=== PATIENT | male | born 1955 | race Caucasian/White ===

== ENCOUNTER 2017-05-05 18:23 | Inpatient (IN) | payer OTHER ==
[~2017-05-05] VITALS: Ht 170.2 cm; Wt 73.0 kg
[~2017-05-05 18:23] MED LIST: CIPR500T4 PO; DOXA2TAB1 PO; FERR325E14 PO
[2017-05-05 19:17] VITALS: BP 143/53
--- NOTE | 2017-05-05 19:39 | NUR ---
Patient to bed 06.
--- NOTE | 2017-05-05 19:40 | NUR ---
APATIENT PRESENTS TO ED WITH SOB/DIFF BREATHING X 2 DAYS. PT IS NOT ON O2 AT HOME BUT CURRENTLY O2SAT IS 95% ON RA. LUNG SOUNDS AT CLEAR BILAT. PT HAS DIALYSIS ON LEFT ARM PT DENIES N/V/D; SKIN IS PINK/WARM/DRY; AAOX4 WITH EVEN AND STEADY GAIT; LUNGS CLEAR BL; HR EVEN AND REGULAR; PT DENIES ANY FEVER OR COUGH AT THIS TIME; PATIENT STATES PAIN OF 0/10 AT THIS TIME; VSS; PATIENT POSITIONED FOR COMFORT; HOB ELEVATED; BEDRAILS UP X2; BED DOWN. ER MD MADE AWARE OF PT STATUS.
[2017-05-05] MEDS ORDERED: ALBUTEROL 0.083% 2.5 MG/3 ML NEBU INH ONE ×2 (21:25→22:45)
--- NOTE | 2017-05-05 21:43 | NUR ---
Respiratory Therapist at bedside for respiratory intervention.
[2017-05-05 22:07] LABS: HEMATOCRIT 38.3 % (36-52); HEMOGLOBIN 12.6 g/dL (12.0-18.0); MEAN CORPUSCULAR HEMOGLOBIN 29 pg (27-31); MEAN CORPUSCULAR HGB CONC 33 g/dL (33-37); MEAN CORPUSCULAR VOLUME 87 fL (80-94); PLATELET COUNT (AUTO) 411 K/uL (140-450); RED CELL DISTRIBUTION WIDTH 13.2 % (11.6-13.7); WHITE BLOOD COUNT (AUTO) 26.6 K/uL (4.8-10.8)
[2017-05-05 22:21] LABS: LYMPHOCYTES % (MANUAL) 2 % (20-46); MONOCYTES % (MANUAL) 4 % (5-12)
[2017-05-05 22:22] LABS: APPEARANCE,URINE CLOUDY (CLEAR); BILIRUBIN,URINE NEGATIVE (NEGATIVE); BLOOD, URINE 2+ (NEGATIVE); COLOR,URINE YELLOW (YELLOW); LEUKOCYTE ESTERASE ,URINE 3+ (NEGATIVE); NITRITE, URINE NEGATIVE (NEGATIVE); UGLUCOSE NEGATIVE (NEGATIVE)
[2017-05-05 22:29] LABS: PROTHROMBIN TIME 10.9 secs (10.8-13.4)
[2017-05-05 22:30] LABS: ALBUMIN 2.9 g/dL (3.4-5.0); ANION GAP 37.3 (8-16); TOTAL BILIRUBIN 0.5 mg/dL (0.0-1.0)
[2017-05-05 22:37] LABS: CARBON DIOXIDE 8.3 mmol/L (21-32); POTASSIUM 7.6 mmol/L (3.5-5.1)
[2017-05-05 22:38] LABS: CREATININE 17.8 mg/dL (0.7-1.3)
[2017-05-05] MEDS ORDERED: CALCIUM CHLORIDE 10% 100 MG/ML SYR IVP ONE (22:45)
[2017-05-05] MEDS ORDERED: SODIUM POLYSTYRENE 15 GM/60 ML UDBTL PO ONE (22:45)
[2017-05-05] MEDS ORDERED: DEXTROSE 50% 50 ML SYR IVP ONE (22:45)
[2017-05-05] MEDS ORDERED: SODIUM BICARBONATE 8.4% 50 MEQ/50 ML VIAL INJ ONE (22:45)
[2017-05-05] MEDS ORDERED: INSULIN HUMAN REGULAR 100 UNITS/ML 10 ML VIAL IVP STA (22:45)
[2017-05-05 22:50] LABS: RBC,URINE 11-20 (MOD) /HPF (0-5); WBC,URINE TOO MANY TO COUNT /HPF (0-5)
[2017-05-05] MEDS ORDERED: HYDROcodone/APAP 7.5/325 MG 1 TAB PO PRN (23:50)
[2017-05-05] MEDS ORDERED: ONDANSETRON 4 MG/2 ML VIAL IVP PRN (23:50)
--- NOTE | 2017-05-06 00:02 | NUR ---
Patient will be admitted to care of DR THOMPSON. Admited to TELE. Will go to room 110B. Belongings list completed. Report to PANCHO GAMEZ.
[2017-05-06 00:10] VITALS: BP 121/63
--- NOTE | 2017-05-06 00:10 | NUR ---
PT ARRIVED ON UNIT VIA GURNEY FROM THE ER. PT IN STABLE CONDITION NO S/S OF DISTRESS NOTED. PT AA0X4, SKIN IS WARM AND DRY, RASH NOTED TO SACRAL AREA AND OPEN WOUND TO LL PUBIC REGION 1CMX0.5CM BRAYAN. IV TO R HAND 20G PATENT AND INTACT. RESPIRATIONS ARE EVEN AND UNLABORED. PT IS ON RA. BOWEL SOUNDS PRESENT. PT AMBULATES BUT IS UNSTEADY. INITIAL ASSESSMENT COMPLETED. PLAN OF CARE DISCUSSED WITH PT AT THE BEDSIDE, ALL SAFETY PRECAUTIONS MET, CALL LIGHT WITHIN REACH WILL CONTINUE TO MONITOR
[2017-05-06 00:14] LABS: BARBITURATE, URINE NEG. ng/ml (NEG <=200); BENZODIAZEPINE, URINE NEG. ng/mL (NEG <=200); OPIATE, URINE NEG. ng/mL (NEG <=2000)
--- NOTE | 2017-05-06 00:15 | NUR ---
WOUND CLEANSED WITH NS, CULTURE TAKEN AND WOUND COVERED WITH GAUZE
[2017-05-06 00:21] LABS: CHOL/HDL RATIO 3.3 (1-4.5); FREE T4 (FREE THYROXINE) 0.5 ng/dL (0.76-1.46); MAGNESIUM 2.6 mg/dL (1.8-2.4); THYROID STIMULATING HORMONE 0.98 uIU/mL (0.34-3.74)
[2017-05-06] MEDS ORDERED: ALBUTEROL SULFATE/IPRATROPIU 3 ML SOL IH PRN (00:40)
[2017-05-06 01:27] LABS: CANNABINOID, URINE NEG. ng/mL (NEG <=50); COCAINE, URINE NEG. ng/mL (NEG <=300); PHENCYCLIDINE SCREEN,URINE NEG. ng/mL (NEG <=25)
[2017-05-06] MEDS ORDERED: SODIUM BICARBONATE 8.4% 50 MEQ/50 ML VIAL INJ SCH (01:40)
[2017-05-06 01:46] LABS: PHOSPHORUS 17.1 mg/dL (2.5-4.9)
--- NOTE | 2017-05-06 01:46 | NUR ---
RECEIVED CRITICAL LAB VALUE FOR PHOSPHORUS 17.[address] NINA AWARE
[2017-05-06] MEDS: NACL 0.9% 1,000 ML IV SCH ×4 (01:49→20:37)
[2017-05-06] MEDS ORDERED: SODIUM BICARBONATE 8.4% 50 MEQ/50 ML VIAL INJ ONE (01:50)
[2017-05-06 02:02] LABS: ANION GAP 38.9 (8-16)
[2017-05-06 02:12] LABS: POTASSIUM 6.7 mmol/L (3.5-5.1)
[2017-05-06 02:13] LABS: CARBON DIOXIDE 5.8 mmol/L (21-32)
--- NOTE | 2017-05-06 02:30 | NUR ---
DIALYSIS NURSE CAME TO SEE PT, PORT IS NOT ACCESSIBLE ANYMORE, NEW PLACEMENT IS NEEDED. DR. NINA AWARE
[2017-05-06] MEDS ORDERED: SODIUM BICARBONATE 8.4% PFS 50 MEQ/50 ML SYR IVP ONE ×2 (02:48→03:16)
[2017-05-06] MEDS ORDERED: MORPHINE SULFATE 2 MG/ML SYR IVP PRN ×2 (02:50→07:12)
--- NOTE | 2017-05-06 02:55 | NUR ---
NEW IV PLACED BY CHARGE NURSE OMID, OLD IV INFILTRATED, SWELLING NOTED. NEW IV PLACED ON THE R AC 2O G, PATENT AND INTACT
[2017-05-06 04:00] VITALS: BP 119/64
--- NOTE | 2017-05-06 04:00 | NUR ---
ANNA CATHETER PLACED ON LEFT SIDE OF NECK BY DR. NINA, PT TOLERATED WELL. WILL CONTINUE TO MONITOR
[2017-05-06] MEDS: PIPER/TAZO 2.25GM/D5W PREMIX 50 ML IV SCH ×3 (05:12→20:32)
[2017-05-06] MEDS ORDERED: PIPERACILLIN/TAZOBACTAM 2.25 GM VIAL IV ONE (05:20)
--- NOTE | 2017-05-06 05:27 | NUR ---
PATIENT WAS INSTRUCTED ON ICENTIVE SPIROMETRY. PATIENT DID 1200ML X 5 TIMES. PATIENT IS ON ROOM AIR AND NO RESP DISTRESS SPO2 98 HEART RATE 88
[2017-05-06 06:10] LABS: HEMATOCRIT 33.5 % (36-52); HEMOGLOBIN 11.5 g/dL (12.0-18.0); MEAN CORPUSCULAR HEMOGLOBIN 30 pg (27-31); MEAN CORPUSCULAR HGB CONC 34 g/dL (33-37); MEAN CORPUSCULAR VOLUME 86 fL (80-94); PLATELET COUNT (AUTO) 327 K/uL (140-450); WHITE BLOOD COUNT (AUTO) 19.3 K/uL (4.8-10.8)
--- NOTE | 2017-05-06 06:23 | NUR ---
PT KEPT CLEAN AND DRY, PEACOCK CARE PROVIDED.
[2017-05-06 06:47] LABS: MAGNESIUM 2.2 mg/dL (1.8-2.4)
--- NOTE | 2017-05-06 07:00 | NUR ---
CHECKED WITH DR NINA REGARDING RESULT OF CXR, STATED THEY WILL REPLACED IT.
[2017-05-06] MEDS: ALBUTEROL SULFATE/IPRATROPIU 3 ML SOL IH SCH ×3 (07:02→18:34)
[2017-05-06 07:05] LABS: LYMPHOCYTES % (MANUAL) 3 % (20-46); MONOCYTES % (MANUAL) 3 % (5-12)
[2017-05-06 07:26] LABS: ANION GAP 39.5 (8-16); POTASSIUM 5.6 mmol/L (3.5-5.1)
--- NOTE | 2017-05-06 07:30 | NUR ---
GAVE REPORT TO DAY NURSE AT THE BEDSIDE FOR CONTINUITY OF CARE, PT REMAINS STABLE
--- NOTE | 2017-05-06 07:30 | NUR ---
RECEIVED PT AWAKE, EATING BREAKFAST. NO SOB NOTED. NO C/O PAIN AT THIS TIME. IV TO RT HAND PATENT AND INTACT. CHEST CLEAR. ABDOMEN SOFT, BOWEL SOUNDS PRESENT. WITH PEACOCK DRAINING SMALL AMOUNT OF DARK ZUNILDA URINE. NO EDEMA NOTED. DRESSING TO LEFT LOWER ABDOMEN DRY AND INTACT. INSTRUCTED PT TO CALL FOR ASSISTANCE, CALL LIGHT WITHIN REACH. PT VERBALIZED UNDERSTANDING.
[2017-05-06 07:46] LABS: PHOSPHORUS 11.7 mg/dL (2.5-4.9)
[2017-05-06 08:00] VITALS: BP 109/62
[2017-05-06] MEDS ORDERED: CALCIUM ACETATE 667 MG TAB PO SCH (08:00)
[2017-05-06] MEDS ORDERED: HYDROmorphone 1 MG/ML AMP IVP SCH (08:00)
[2017-05-06 08:49] LABS: CARBON DIOXIDE 7.1 mmol/L (21-32)
[2017-05-06 08:50] LABS: CREATININE 17.8 mg/dL (0.7-1.3)
[2017-05-06] MEDS: LORazepam 2 MG/ML VIAL IVP SCH (08:54)
--- NOTE | 2017-05-06 08:55 | NUR ---
1 MG ATIVAN IVP GIVEN PER DR. WEBB; 1 MG WASTED FROM STOCK OF 2 MG PER VIAL.
[2017-05-06] MEDS: LACTOBACILLUS RHAMNOSUS GG 1 EACH CAP PO SCH (09:00)
[2017-05-06] MEDS: DOCUSATE SODIUM 100 MG GELCAP PO SCH ×2 (09:00→20:32)
[2017-05-06] MEDS ORDERED: CALCIUM GLUCONATE 10% 1,000 MG in NACL 0.9% 100 ML IV SCH (09:00)
--- NOTE | 2017-05-06 09:00 | NUR ---
RIGHT ANNA CATHETER PLACEMENT STARTED AT THE BEDSIDE.
--- NOTE | 2017-05-06 09:30 | NUR ---
DR. REDDY UNABLE TO PLACE RT CHEST ANNA CATH.
--- NOTE | 2017-05-06 09:55 | NUR ---
PATIENT HAS BEEN SCREENED AND CATEGORIZED MODERATE NUTRITION RISK. PATIENT WILL BE SEEN WITHIN 3-5 DAYS OF ADMISSION. 05/08/17-05/10/[address] Addendum: 05/07/17 at [address] D/T FNS CONSULT RECEIVED ON 05/07, PT HAS BEEN RESCREENED HIGH NUTRITION RISK. PT WILL BE SEEN WITHIN 1-2 DAYS OF WHEN CONSULT WAS RECEIVED. 05/08/17 -05/09/[address]
[2017-05-06] MEDS ORDERED: SODIUM BICARBONATE 8.4% PFS 50 MEQ/50 ML SYR IVP STA (10:14)
--- NOTE | 2017-05-06 10:50 | NUR ---
RT FEMORAL ANNA CATHETER PLACEMENT ON GOING AT THE BEDSIDE DR. DR. TRAN.
[2017-05-06] MEDS: ALBUMIN HUMAN 25% 100 ML IV SCH ×2 (11:30→13:30)
[2017-05-06] MEDS ORDERED: OSMITROL 25% 12.5 GM/50 ML VIAL IV SCH ×2 (11:50→12:30)
--- NOTE | 2017-05-06 11:50 | NUR ---
HEMODIALYSIS STARTED AT THE BEDSIDE. PT RESTING. NO SOB NOTED.
[2017-05-06 12:00] VITALS: BP 120/62
--- NOTE | 2017-05-06 13:22 | NUR ---
PT CANNOT BE ACCESSED DUE TO DIALYSIS HHN NOT GIVEN SPO2 98 ON RA HEART RATE IS 111 RR 18 NO DISTRESS NOTED
--- NOTE | 2017-05-06 14:00 | NUR ---
MANNITOL 25% 250 ML GIVEN BY DIALYSIS NURSE DURING HEMODIALYSIS.
[2017-05-06] MEDS ORDERED: DEXTROSE 50% 50 ML SYR IVP PRN (14:25)
--- NOTE | 2017-05-06 15:00 | NUR ---
HEMODIALYSIS COMPLETED. PT STABLE, RESTING. NO COMPLAINTS MADE. NO OUTPUT PER DIALYSIS NURSE, CLEANSING ONLY.
[2017-05-06] MEDS ORDERED: ALBUMIN HUMAN 25% 50 ML IV SCH (15:30)
[2017-05-06 16:00] VITALS: BP 129/70
[2017-05-06] MEDS: BLOOD GLUCOSE MONITORING 1 DEV DEV FS SCH ×2 (16:30→20:30)
[2017-05-06] MEDS: CALCIUM ACETATE 667 MG TAB PO SCH (17:00)
--- NOTE | 2017-05-06 17:00 | NUR ---
ULTRASOUND OF ABDOMEN ON GOING AT THE BEDSIDE.
[2017-05-06] MEDS: INSULIN LISPRO SLIDING SCALE 100 UNITS/ML VIAL SUBQ PRN ×2 (17:34→22:21)
[2017-05-06 18:48] LABS: ANION GAP 26.9 (8-16); CARBON DIOXIDE 16.1 mmol/L (21-32)
[2017-05-06 18:51] LABS: CREATININE 13.6 mg/dL (0.7-1.3)
--- NOTE | 2017-05-06 19:00 | NUR ---
PT AWAKE, NO SOB NOTED. NO COMPLAINTS MADE. WITH FAMILY AT THE BEDSIDE VISITING. WILL ENDORSE TO NEXT SHIFT NURSE FOR CONTINUITY OF CARE.
--- NOTE | 2017-05-06 19:20 | NUR ---
PATIENT REPORT RECEIVED FROM MORNING NURSE. PATIENT'S FAMILY IS AT BEDSIDE. PATIENT IS AWAKE AND ALERT. NO SIGNS AND SYMPTOMS OF DISTRESS NOTED. NO COMPLAINTS OF PAIN AT THIS TIME. PEACOCK CATHETER IN PLACE AND DRAINING DARK ZUNILDA URINE. IV SITE NOTED ON RIGHT HAND. IVF INFUSING WELL. RIGHT FEMORAL ANNA CATH NOTED. BED IN LOWEST POSITION, SIDE RAILS UP AND CALL LIGHT WITHIN REACH. WILL CONTINUE TO MONITOR.
[2017-05-06 20:00] VITALS: BP 113/63
[2017-05-06] MEDS: ACETAMINOPHEN 325 MG TAB PO PRN (20:32)
--- NOTE | 2017-05-06 22:59 | NUR ---
PATIENT CONFUSED. ASKING WHY HE WAS HERE. EXPLAINED TO HIM HIS DIAGNOSIS AND THE TREATMENT THAT IS BEING DONE, WELL THE NEED FOR DIALYSIS. PATIENT SAID THAT HE WANTED TO TALK TO ONE OF HIS CHILDREN. I CALLED PATIENT'S DAUGHTER, SIMON. DAUGHTER SPOKE WITH PATIENT OVER THE PHONE. PATIENT VERBALIZED UNDERSTANDING. WILL CONTINUE TO MONITOR.
--- NOTE | 2017-05-06 23:46 | NUR ---
CHECKED ON PATIENT. PATIENT IS ASLEEP. NO SIGNS AND SYMPTOMS OF DISTRESS NOTED. BREATHING EVEN AND UNLABORED. BED IN LOWEST POSITION, SIDE RAILS UP AND CALL LIGHT WITHIN REACH. WILL CONTINUE TO MONITOR.
[2017-05-07] VITALS: BP 120/62
[2017-05-07 04:00] VITALS: BP 118/73
[2017-05-07] MEDS: PIPER/TAZO 2.25GM/D5W PREMIX 50 ML IV SCH ×3 (04:00→21:42)
--- NOTE | 2017-05-07 06:00 | NUR ---
PATIENT STARTED DIALYSIS
[2017-05-07] MEDS: BLOOD GLUCOSE MONITORING 1 DEV DEV FS SCH ×4 (06:31→21:50)
[2017-05-07 06:33] LABS: HEMATOCRIT 28.1 % (36-52); HEMOGLOBIN 9.5 g/dL (12.0-18.0); MEAN CORPUSCULAR HEMOGLOBIN 29 pg (27-31); MEAN CORPUSCULAR HGB CONC 34 g/dL (33-37); MEAN CORPUSCULAR VOLUME 85 fL (80-94); PLATELET COUNT (AUTO) 285 K/uL (140-450); RED BLOOD CELL COUNT(AUTO) 3.33 MIL/uL (4.20-6.10); RED CELL DISTRIBUTION WIDTH 13.1 % (11.6-13.7); WHITE BLOOD COUNT (AUTO) 17.2 K/uL (4.8-10.8)
[2017-05-07] MEDS: ALBUTEROL SULFATE/IPRATROPIU 3 ML SOL IH SCH ×3 (06:59→19:57)
[2017-05-07 07:00] LABS: ALBUMIN 1.8 g/dL (3.4-5.0); ANION GAP 25.4 (8-16); CARBON DIOXIDE 16.8 mmol/L (21-32); POTASSIUM 4.2 mmol/L (3.5-5.1); TOTAL BILIRUBIN 0.6 mg/dL (0.0-1.0)
[2017-05-07 07:15] LABS: CREATININE 13.9 mg/dL (0.7-1.3)
[2017-05-07 07:16] LABS: PHOSPHORUS 9.5 mg/dL (2.5-4.9)
--- NOTE | 2017-05-07 07:25 | NUR ---
PATIENT REPORT GIVEN TO MORNING NURSE. PATIENT IS IN STABLE CONDITION
[2017-05-07 07:32] LABS: LYMPHOCYTES % (MANUAL) 2 % (20-46); MONOCYTES % (MANUAL) 2 % (5-12)
[2017-05-07 07:49] VITALS: BP 120/73
[2017-05-07] MEDS ORDERED: MAG SULF 2000 MG/WATER PREMIX 50 ML IV SCH (08:00)
--- NOTE | 2017-05-07 08:05 | NUR ---
PT IN BED AWAKE ALERT AND CALM. NO NO REPORTED PAIN OR SOB. PT IS VERBALLY RESPONSIVE TO VERBAL COMMAND VIA POLISH ONLY
[2017-05-07 09:36] LABS: ALBUMIN 1.9 g/dL (3.4-5.0); ANION GAP 25.6 (8-16); CARBON DIOXIDE 16.6 mmol/L (21-32); POTASSIUM 4.2 mmol/L (3.5-5.1); TOTAL BILIRUBIN 0.7 mg/dL (0.0-1.0)
[2017-05-07 09:43] LABS: CREATININE 14.1 mg/dL (0.7-1.3)
[2017-05-07] MEDS: LACTOBACILLUS RHAMNOSUS GG 1 EACH CAP PO SCH (09:48)
[2017-05-07] MEDS: DOCUSATE SODIUM 100 MG GELCAP PO SCH ×2 (09:49→21:42)
[2017-05-07] MEDS: LORazepam 2 MG/ML VIAL IVP SCH (09:50)
[2017-05-07] MEDS: CALCIUM ACETATE 667 MG TAB PO SCH ×2 (09:51→17:06)
[2017-05-07] MEDS ORDERED: BUPIVACAINE-MPF 0.25% 30 ML VIAL INJ ONE (10:29)
[2017-05-07] MEDS ORDERED: LIDOCAINE 1% 0 ML ONE (10:29)
--- NOTE | 2017-05-07 10:30 | NUR ---
DIALYSIS COMPLETED AT THE BED SITE. PT IS AWAKE ALERT AND CALM. NO ACUTE DISTRESS NOTED. PT IS NPO FOR PLACEMENT OF YUNNEL CATHETER FOR DIALYSIS. V/S STABLE.
[2017-05-07 12:00] VITALS: BP 130/81
[2017-05-07] MEDS: INSULIN LISPRO SLIDING SCALE 100 UNITS/ML VIAL SUBQ PRN ×3 (12:40→21:47)
--- NOTE | 2017-05-07 14:10 | NUR ---
PT AWAKE IN BED ALERT AND CALM. NO ACUTE DISTRESS OR PAIN. AT PRESENT. TUNNEL CATH NOT PLACED DUE TO AVAILABILITY OF SURGERY ROOM. RESIDENT DR WEBB NOTIFIED ABOUT POSITIVE BLOOD CULTURE.
--- NOTE | 2017-05-07 15:04 | NUR ---
05/07/17 RD INITIAL ASSESSMENT COMPLETED PLEASE REFER TO NUTRITION ASSESSMENT UNDER CARE ACTIVITY FOR ESTIMATED NUTRITIONAL NEEDS. 1. CONTINUE NPO MEDICALLY NECESSARY PER MD 2. WHEN MEDICALLY APPROPRIATE CONSIDER ADVANCE DIET BACK TO RENAL 3. RD PROVIDED PT WITH RENAL DIET EDUCATIONAL HANDOUTS. 4. RD TO FOLLOW-UP 3-5 DAYS, MODERATE RISK ANDREW BAE RD
[2017-05-07 16:00] VITALS: BP 129/55
[2017-05-07] MEDS ORDERED: LIDOCAINE/EPI 2% 1:100000 20 ML VIAL INJ SCH (16:50)
[2017-05-07] MEDS: NACL 0.9% 1,000 ML IV SCH (17:00)
[2017-05-07] MEDS: ACETAMINOPHEN 325 MG TAB PO PRN (17:04)
--- NOTE | 2017-05-07 19:00 | NUR ---
PT IN BED SITTING AND TALKING WITH HIS FAMILY AT THE BED SITE WITH PT. NO PAIN OR DISTRESS NOTED. TYLENOL 650 MG PO GIVEN AT 1720 FOR TEMP OF 100.3. 2 UNITS OF INSULIN COVERAGE GIVEN FOR BLOOD SUGAR OF 161. PT IS NST OB THE MONITOR.
--- NOTE | 2017-05-07 19:10 | NUR ---
RECEIVED BEDSIDE REPORT FROM DAY SHIFT NURSE, PT STABLE NO DISTRESS NOTED, NO SOB, AAOX4, IV TO THE R FA 20G RUNNING NS @ 50ML/HR INFUSING WELL, DRESSING CLEAN DRY AND INTACT, PEACOCK CATH DRAINING URINE, CLOUDY LIGHT YELLOW, PT RESTING, FAMILY BY BEDSIDE, CALL LIGHT WITHIN REACH. INITIAL ASSESSMENT DONE, ALL SAFETY PRECAUTION MET. WILL CONTINUE TO MONITOR.
[2017-05-07 20:00] VITALS: BP 139/84
[2017-05-07 20:14] LABS: ANION GAP 17.6 (8-16); CARBON DIOXIDE 25.1 mmol/L (21-32); POTASSIUM 3.7 mmol/L (3.5-5.1)
[2017-05-07 20:18] LABS: CREATININE 9.9 mg/dL (0.7-1.3)
--- NOTE | 2017-05-07 21:47 | NUR ---
DUE MEDICATION GIVEN, PT SLEEPING, EASY TO AROUSE, NO DISTRESS NOTED, CALL LIGHT WITHIN REACH, WILL CONTINUE TO MONITOR.
--- NOTE | 2017-05-07 23:09 | NUR ---
ENDORSE PT TO PATRICIA RN, PT STABLE, NO DISTRESS NOTED, SLEEPING, EASY TO AROUSE, CALL LIGHT WITHIN REACH.
--- NOTE | 2017-05-07 23:10 | NUR ---
RECEIVED REPORT FROM PANCHO DON. PATIENT WAS SLEEPING, BUT EASY TO AROUSE, RESPIRATION EVEN AND UNLABORED, IV PATENT AND INTACT. INTRODUCED MYSELF TO THE PATIENT AND INFORMED HIM THAT HE WOULD BE PICKED UP FOR THE ABDOMINAL CT. PATIENT VERBALIZED UNDERSTANDING. CALL LIGHT WITHIN REACH, SAFETY MEASURE ENSURED, WILL CONTINUE TO MONITOR.
--- NOTE | 2017-05-07 23:18 | NUR ---
PATIENT IS IN STABLE CONDITION AND OFF THE FLOOR FOR THE ABDOMINAL CT.
--- NOTE | 2017-05-07 23:40 | NUR ---
ASSISTED PATIENT BACK TO BED, NO S/S OF DISTRESS NOTED, RESPIRATION EVEN AND UNLABORED, VITAL SIGNS ARE STABLE. CALL LIGHT WITHIN REACH, SAFETY MEASURE ENSURED, WILL CONTINUE TO MONITOR.
[2017-05-08 00:03] VITALS: BP 140/89
--- NOTE | 2017-05-08 02:07 | NUR ---
NO CHANGE IN CONDITION, PATIENT IS SLEEPING, NO S/S OF DISTRESS NOTED, RESPIRATION EVEN AND UNLABORED, CALL LIGHT WITHIN REACH, SAFETY MEASURE ENSURED, WILL CONTINUE TO MONITOR.
[2017-05-08 03:55] VITALS: BP 138/82
[2017-05-08] MEDS: PIPER/TAZO 2.25GM/D5W PREMIX 50 ML IV SCH ×2 (04:01→13:58)
[2017-05-08] MEDS: NACL 0.9% 1,000 ML IV SCH ×2 (04:01→20:06)
--- NOTE | 2017-05-08 04:03 | NUR ---
ZOSYN STARTED, PATIENT TOLERATED WELL, NO S/S OF DISTRESS NOTED, RESPIRATION EVEN AND UNLABORED, CALL LIGHT WITHIN REACH, SAFETY MEASURE ENSURED, WILL CONTINUE TO MONITOR.
--- NOTE | 2017-05-08 06:28 | NUR ---
PATIENT WAS SLEEPING, BUT EASY TO AROUSE. NO S/S OF DISTRESS NOTED, RESPIRATION EVEN AND UNLABORED, CALL LIGHT WITHIN REACH, SAFETY MEASURE ENSURED, WILL CONTINUE TO MONITOR.
[2017-05-08 06:47] LABS: HEMATOCRIT 27.4 % (36-52); HEMOGLOBIN 9.2 g/dL (12.0-18.0); MEAN CORPUSCULAR HEMOGLOBIN 29 pg (27-31); MEAN CORPUSCULAR HGB CONC 34 g/dL (33-37); MEAN CORPUSCULAR VOLUME 86 fL (80-94); PLATELET COUNT (AUTO) 300 K/uL (140-450); RED BLOOD CELL COUNT(AUTO) 3.19 MIL/uL (4.20-6.10); RED CELL DISTRIBUTION WIDTH 12.6 % (11.6-13.7); WHITE BLOOD COUNT (AUTO) 17.8 K/uL (4.8-10.8)
[2017-05-08] MEDS: BLOOD GLUCOSE MONITORING 1 DEV DEV FS SCH ×4 (06:53→20:57)
[2017-05-08 07:06] LABS: ANION GAP 24.4 (8-16); CARBON DIOXIDE 19.9 mmol/L (21-32); POTASSIUM 4.3 mmol/L (3.5-5.1)
[2017-05-08 07:07] LABS: AMYLASE 91 U/L (25-115); LIPASE 327 U/L (73-393)
[2017-05-08] MEDS: ALBUTEROL SULFATE/IPRATROPIU 3 ML SOL IH SCH ×3 (07:13→19:43)
--- NOTE | 2017-05-08 07:15 | NUR ---
ENDORSED PLAN OF CARE TO DAY RN. PATIENT IS IN STABLE CONDITION, NO S/S OF DISTRESS NOTED.
[2017-05-08 07:20] LABS: CREATININE 10.1 mg/dL (0.7-1.3)
[2017-05-08 07:22] LABS: LYMPHOCYTES % (MANUAL) 7 % (20-46); MONOCYTES % (MANUAL) 6 % (5-12)
--- NOTE | 2017-05-08 07:25 | NUR ---
RECEIVED BEDSIDE REPORT FROM SOFTWARE DEVELOPMENT PROJECT MANAGER NURSE, NO S/S OF DISTRESS NOTED, AAOX4, IV TO THE R FA 20G RUNNING NS @ 50ML/HR INFUSING WELL, LOWER ABD DRESSING CLEAN DRY AND INTACT, PEACOCK CATH DRAINING URINE, CLOUDY LIGHT YELLOW, PT RESTING. BED LOW, CALL LIGHT WITHIN REACH. FALL PRECAUTION MET. WILL CONTINUE TO MONITOR.
--- NOTE | 2017-05-08 07:30 | NUR ---
DRESSING NOTED ON THE LEFT NECK, DRESSING IS INTACT AND DRY.
[2017-05-08 07:51] LABS: HEPATITIS A ANTIBODY IGM Negative (Negative); HEPATITIS B CORE AB TOTAL Negative (Negative); HEPATITIS B SURFACE ANTIBODY Non Reactive (.); HEPATITIS B SURFACE ANTIGEN Negative (Negative)
[2017-05-08 08:00] VITALS: BP 122/87
[2017-05-08] MEDS: DOCUSATE SODIUM 100 MG GELCAP PO SCH ×2 (09:33→21:37)
[2017-05-08] MEDS: LACTOBACILLUS RHAMNOSUS GG 1 EACH CAP PO SCH (09:33)
[2017-05-08] MEDS: CALCIUM ACETATE 667 MG TAB PO SCH ×2 (09:33→20:04)
[2017-05-08] MEDS: LORazepam 2 MG/ML VIAL IVP SCH (09:34)
--- NOTE | 2017-05-08 10:00 | NUR ---
PATIENT IS SLEEPING, NO S/S OF DISTRESS NOTED, RESPIRATION EVEN AND UNLABORED, CALL LIGHT WITHIN REACH, WILL CONTINUE TO MONITOR.
[2017-05-08 12:00] VITALS: BP 123/92
--- NOTE | 2017-05-08 13:32 | NUR ---
DIANE NOTE CLINICAL INFORMATION FAXED TO [facility] / FAX# [phone], ATTN: RONEL
--- NOTE | 2017-05-08 14:00 | NUR ---
ACCORDING TO BEHAVIORAL THERAPIST, PINK, BALL SIZED FLESH CAME OUT OF THE PT'S ANUS AND PT PUT BACK IN WITH A TOWEL. SUSPECTED HEMORRHOID. NOTIFIED MD IN THE OFFICE, STATED WILL SEE THE PT.
--- NOTE | 2017-05-08 14:20 | NUR ---
PRIMARY RN REQUEST ASSISTANCE TO ASSESS PT ABDOMINAL WOUND S/P I&D SUPRAPUBIC ABSCESS, 2X1.5X1 CM WOUND SITE NOTICE OF MODERATE AMOUNT OF SANGUINEUS DRAINAGE, PERIWOUND ERYTHEMA, NO ODOR NOTICE. DR. WEBB NOTIFY NO CURRENT WOUND TREATMENT AT THIS TIME. RECOMMENDATION GIVEN CLEANSE SUPRAPUBIC WOUND WITH NS. PAT DRY, PACK WITH IODOFORM AND COVER WITH DRY DRESSING AND SECURE WITH TAPE QD AND PRN IF SOILING. PRIMARY RN NOTIFY OF RECOMMENDATION.
[2017-05-08 16:00] VITALS: BP 137/79
--- NOTE | 2017-05-08 16:30 | NUR ---
PT VITAL SIGNS ARE STABLE. DIALYSIS NURSE STARTED THE HEMODIALYSIS. PT RESTING COMFORTABLY IN BED.
[2017-05-08] MEDS: INSULIN LISPRO SLIDING SCALE 100 UNITS/ML VIAL SUBQ PRN ×2 (17:26→21:41)
--- NOTE | 2017-05-08 18:42 | NUR ---
DR DURHAM HAS SEEN THE PT. DR WILL PUT IN NEW ORDERS.
--- NOTE | 2017-05-08 18:43 | NUR ---
NOTIFIED DR DURHAM ABOUT THE PINK BALL SIZED FLESH CAME OUT OF THE PT'S ANUS. STATED IT'S POSSIBLE HEMORRHOID PROLAPSE.
[2017-05-08] MEDS ORDERED: VANCOMYCIN PER PHARMACY MC PRN (18:55)
--- NOTE | 2017-05-08 19:21 | NUR ---
ENDORSED PT TO HIV/AIDS CARE NURSE. REPORT GIVEN AT BEDSIDE. PT IS RESTING. DIALYSIS NURSE AT BEDSIDE. PT IS IN STABLE CONDITION AND NO S/S OF ACUTE DISTRESS.
--- NOTE | 2017-05-08 19:22 | NUR ---
RECEIVED BEDSIDE REPORT FROM DAY SHIFT NURSE TRACEY PT STABLE, IN DIALYSIS, DIALYSIS NURSE BY BEDSIDE, FAMILY BY BEDSIDE, AAOX4 DRESSING CLEAN DRY AND INTACT, PEACOCK DRAINING CLOUDY ZUNILDA COLORED URINE, NO DISTRESS NOTED, CALL LIGHT WITHIN REACH, ALL SAFETY PRECAUTION MET, INITIAL ASSESSMENT DONE, WILL CONTINUE TO MONITOR.
[2017-05-08 20:00] VITALS: BP 132/84
[2017-05-08] MEDS ORDERED: MEROPENEM 1,000 MG in NACL 0.9% 100 ML IV SCH (21:00)
[2017-05-08] MEDS ORDERED: MEROPENEM 500 MG in NACL 0.9% 100 ML IV SCH (21:00)
[2017-05-08] MEDS ORDERED: VANCOMYCIN 1GM/DEXT 5% PREMIX 200 ML IV SCH (21:30)
[2017-05-08] MEDS ORDERED: MEROPENEM 500 MG VIAL IV ONE (21:37)
--- NOTE | 2017-05-08 21:41 | NUR ---
DUE MEDICATION GIVEN, PT TOLERATED WELL, NO DISTRESS NOTED, CALL LIGHT WITHIN REACH, WILL CONTINUE TO MONITOR.
[2017-05-09] VITALS: BP 144/86
--- NOTE | 2017-05-09 00:05 | NUR ---
PT SLEEPING, EASY TO AROUSE NO DISTRESS NOTED, V/S TAKEN, WNL, REPORTED HAVING NO PAIN AT THIS TIME. WILL CONTINUE TO MONITOR.
--- NOTE | 2017-05-09 02:40 | NUR ---
PT SLEEPING, NO DISTRESS NOTED CALL LIGHT WITHIN REACH, WILL CONTINUE TO MONITOR.
[2017-05-09 04:00] VITALS: BP 115/70
--- NOTE | 2017-05-09 05:43 | NUR ---
CHECKED ON PT, PT SLEEPING, EASY TO AROUSE, NO DISTRESS NOTED, CALL LIGHT WITHIN REACH.
[2017-05-09 06:40] LABS: BASOPHILS % (AUTO) 0.1 % (0.0-2.0); EOSINOPHILS # (AUTO) 0.1 K/uL (0-0.4); HEMATOCRIT 25.4 % (36-52); HEMOGLOBIN 8.4 g/dL (12.0-18.0); LYMPHOCYTES # (AUTO) 0.8 K/uL (2.0-11.5); LYMPHOCYTES % (AUTO) 5.8 % (20.5-51.1); MEAN CORPUSCULAR HEMOGLOBIN 28 pg (27-31); MEAN CORPUSCULAR HGB CONC 33 g/dL (33-37); MEAN CORPUSCULAR VOLUME 85 fL (80-94); MONOCYTES # (AUTO) 0.8 K/uL (0.8-1.0); MONOCYTES % (AUTO) 5.6 % (1.7-9.3); NEUTROPHILS # (AUTO) 12.5 K/uL (1.8-7.7); NEUTROPHILS % (AUTO) 87.5 % (42.2-75.2); PLATELET COUNT (AUTO) 278 K/uL (140-450); RED BLOOD CELL COUNT(AUTO) 2.99 MIL/uL (4.20-6.10); RED CELL DISTRIBUTION WIDTH 12.3 % (11.6-13.7); WHITE BLOOD COUNT (AUTO) 14.2 K/uL (4.8-10.8)
[2017-05-09 07:07] LABS: ANION GAP 18.5 (8-16); CARBON DIOXIDE 22.5 mmol/L (21-32)
[2017-05-09 07:13] LABS: MAGNESIUM 1.7 mg/dL (1.8-2.4); PHOSPHORUS 6.4 mg/dL (2.5-4.9)
--- NOTE | 2017-05-09 07:18 | NUR ---
GAVE BEDSIDE REPORT TO DAY SHIFT NURSE TRACEY RN, ENDORSED PLAN OF CARE, PT STABLE, NO DISTRESS NOTED, CALL LIGHT WITHIN REACH, WILL CONTINUE TO MONITOR.
--- NOTE | 2017-05-09 07:20 | NUR ---
RECEIVED BEDSIDE REPORT FROM [employer] WEBSPHERE PORTAL DEVELOPER. NO S/S OF ACUTE DISTRESS NOTED. AAOX4, DRESSING NOTED TO THE LLQ OF THE ABD, DRESSING IS CLEAN, DRY AND INTACT, PEACOCK DRAINING CLOUDY YELLOW COLORED URINE. IV NOTED ON THE RIGHT FA, GAUGE 20, INFUSING WELL, NO S/S OF INFILTRATION OR SWELLING. CALL LIGHT WITHIN REACH, ALL SAFETY PRECAUTION MET, WILL CONTINUE TO MONITOR.
[2017-05-09] MEDS: ALBUTEROL SULFATE/IPRATROPIU 3 ML SOL IH SCH ×2 (07:25→14:16)
[2017-05-09] MEDS: BLOOD GLUCOSE MONITORING 1 DEV DEV FS SCH ×3 (07:30→16:25)
[2017-05-09 08:00] VITALS: BP 138/80
--- NOTE | 2017-05-09 08:09 | NUR ---
DIALYSIS NURSE IS HERE, PT IS STABLE CONDITION, NO S/S OF ACUTE DISTRESS NOTED. MD ORDERED AND LABS WERE PRINTED.
[2017-05-09] MEDS: INSULIN LISPRO SLIDING SCALE 100 UNITS/ML VIAL SUBQ PRN ×3 (10:13→19:00)
--- NOTE | 2017-05-09 10:15 | NUR ---
PT RESTING IN BED, DIALYSIS RUNNING. DIALYSIS NURSE AT BEDSIDE. ANNA CATH IS GOOD STATED BY DIALYSIS NURSE. FAMILY CAME TO VISIT, BROUGHT BALLOONS.
[2017-05-09 12:00] VITALS: BP 145/87
--- NOTE | 2017-05-09 12:00 | NUR ---
DIALYSIS FINISHED. 0ML REMOVED. PT SHOWED NO S/S OF DISTRESS AND STATED FELT BETTER.
[2017-05-09] MEDS: CALCIUM ACETATE 667 MG TAB PO SCH ×2 (12:10→18:59)
[2017-05-09] MEDS: LACTOBACILLUS RHAMNOSUS GG 1 EACH CAP PO SCH (12:11)
[2017-05-09] MEDS: DOCUSATE SODIUM 100 MG GELCAP PO SCH (12:11)
[2017-05-09] MEDS ORDERED: VANCOMYCIN 1GM/DEXT 5% PREMIX 200 ML IV SCH (14:00)
--- NOTE | 2017-05-09 14:00 | NUR ---
PT CHATTING WITH FRIEND/NEIGHBOR. NO S/S OF DISTRESS NOTED. WILL CONTINUE TO MONITOR.
[2017-05-09 16:00] VITALS: BP 141/85
--- NOTE | 2017-05-09 16:20 | NUR ---
PT'S SPOUSE AT BEDSIDE. PT RESTING IN BED. VITAL SIGNS TAKEN. WILL CONTINUE TO MONITOR.
--- NOTE | 2017-05-09 19:43 | NUR ---
ENDORSED PT TO PUPPET ENGINEER. REPORT GIVEN AT BEDSIDE. [facility], NOTIFIED PUPPET ENGINEER TO KEEP THE IV ACCESS. PT WAITING FOR TRANSPORT. DISCHARGE TEACHING GIVEN AND PT VERBALIZED UNDERSTANDING. PT IS IN STABLE CONDITION AND NO S/S OF ACUTE DISTRESS.
--- NOTE | 2017-05-09 19:44 | NUR ---
RECEIVED HANDOFF REPORT FROM AM RN. PATIENT A&OX4. PATIENT RESTING IN BED. PATIENT DENIES PAIN. IV SITE PATENT AND INTACT. NO SIGNS AND SYMPTOMS OF ACUTE DISTRESS NOTED. CALL LIGHT WITHIN REACH. WILL CONTINUE TO MONITOR.
--- NOTE | 2017-05-09 20:33 | NUR ---
PREMIER IN TO TRANSPORT PATIENT. PATIENT IN STABLE CONDITION. NO SIGNS OR SYMPTOMS OF ACUTE DISTRESS NOTED. SAFETY MEASURES ENSURED.
[2017-05-09] MEDS ORDERED: MEROPENEM 500 MG in NACL 0.9% 50 ML IV SCH (21:00)
== END 2017-05-09 20:35 | DRG 853 ==
LOC: MED 18:23 → MTU 23:53
PROVIDERS: ADMIT Family Medicine; ATTEND Family Medicine
PROC: 06HM33Z Insertion of Infusion Device into Right Femoral Vein, Percutaneous Approach (ICD-10-PCS; 2017-05-06)
PROC: B54BZZA Ultrasonography of Right Lower Extremity Veins, Guidance (ICD-10-PCS; 2017-05-06)
PROC: 05HM33Z Insertion of Infusion Device into Right Internal Jugular Vein, Percutaneous Approach (ICD-10-PCS; 2017-05-06)
PROC: B544ZZA Ultrasonography of Left Jugular Veins, Guidance (ICD-10-PCS; 2017-05-06)
PROC: 5A1D70Z Performance of Urinary Filtration, Intermittent, Less than 6 Hours Per Day (ICD-10-PCS; 2017-05-06)
PROC: 0J9C0ZZ Drainage of Pelvic Region Subcutaneous Tissue and Fascia, Open Approach (ICD-10-PCS; principal; 2017-05-07)
PROC: 5A1D70Z Performance of Urinary Filtration, Intermittent, Less than 6 Hours Per Day (ICD-10-PCS; 2017-05-07)
PROC: 5A1D70Z Performance of Urinary Filtration, Intermittent, Less than 6 Hours Per Day (ICD-10-PCS; 2017-05-08)
PROC: 5A1D70Z Performance of Urinary Filtration, Intermittent, Less than 6 Hours Per Day (ICD-10-PCS; 2017-05-09)
DX: A41.9 Sepsis, unspecified organism (principal); N17.0 Acute kidney failure with tubular necrosis; G93.41 Metabolic encephalopathy; E43 Unspecified severe protein-calorie malnutrition; K65.1 Peritoneal abscess; K85.90 Acute pancreatitis without necrosis or infection, unspecified; N18.6 End stage renal disease; I12.0 Hypertensive chronic kidney disease with stage 5 chronic kidney disease or end stage renal disease; N39.0 Urinary tract infection, site not specified; N13.30 Unspecified hydronephrosis; T82.868A Thrombosis due to vascular prosthetic devices, implants and grafts, initial encounter; E11.22 Type 2 diabetes mellitus with diabetic chronic kidney disease; D64.9 Anemia, unspecified; E83.51 Hypocalcemia; B96.89 Other specified bacterial agents as the cause of diseases classified elsewhere; B95.61 Methicillin susceptible Staphylococcus aureus infection as the cause of diseases classified elsewhere; K80.20 Calculus of gallbladder without cholecystitis without obstruction; M62.50 Muscle wasting and atrophy, not elsewhere classified, unspecified site; E11.65 Type 2 diabetes mellitus with hyperglycemia; D63.1 Anemia in chronic kidney disease; E87.5 Hyperkalemia; E83.39 Other disorders of phosphorus metabolism; R80.9 Proteinuria, unspecified; Z99.2 Dependence on renal dialysis; Z68.25 Body mass index [BMI] 25.0-25.9, adult; Y83.8 Other surgical procedures as the cause of abnormal reaction of the patient, or of later complication, without mention of misadventure at the time of the procedure; Y92.89 Other specified places as the place of occurrence of the external cause
CPT/HCPCS: 36415; 71010; 76536; 76700; 76770; 80048; 80053; 80305; 81001; 82150; 82306; 82728; 82948; 83036; 83540; 83690; 83735; 83880; 84100; 84439; 84443; 84484; 85025; 85610; 85730; 86704; 86706; 86708; 86709; 86803; 87040; 87070; 87075; 87081; 87086; 87186; 87340; 93005; 93925; 93970; 93971; 94640; 96374; 96375; 99285; J0610; J1170; J1642; J1644; J1815; J2001; J2060; J2150; J2185; J2543; J3370; J3475; J3490; J7030; J7613; J7620; P9046; Q0092

== ENCOUNTER 2019-07-08 08:13 | Emergency (ER) | payer OTHER ==
[~2019-07-08] VITALS: Ht 170.2 cm; Wt 29.5 kg
[2019-07-08 08:20] VITALS: BP 158/79
[2019-07-08] MEDS ORDERED: LIDOCAINE/EPI 1% 1:100000 20 ML VIAL INJ ONE (08:50)
--- NOTE | 2019-07-08 08:51 | NUR ---
BIB SELF PT ABLE TO AMBULATE TO ABLE. LACERATION TO RIGHT THUMB S/P SLAMMING HIS SLIDING CAR DOOR ON HAND. 2CM LACERATION WITH BLEEDING CONTROLLED. NO DEFORMITY NOTED. PT ABLE TO PERFORM FULL ROM ON UBE. CIRCULATION/SENSITIVITY IN TACT. PT RATES PAIN 2/10, SHARP, RADIATING TO HAND. CAP REFILL <3 UBE. AAOX3. HX: ESRD, DIALYSIS NKA
[2019-07-08] MEDS ORDERED: LIDOCAINE/EPI 2% 1:100000 20 ML VIAL INJ ONE (09:26)
--- NOTE | 2019-07-08 10:32 | NUR ---
ER MD AT BEDSIDE REPAIRING LACERATION
[2019-07-08] MEDS ORDERED: BACITRACIN OINT 500 UNITS/GM PKT TP ONE (10:43)
--- NOTE | 2019-07-08 11:03 | NUR ---
CLEANED AND IRAGATED PT'S WOUND ON RIGHT HAND ON PT'S THUMB, APPLIED BACITRACIN TO WOUND, THEN PLACED NON-ADH BANDAGE ON WOUND THEN WRAP WITH COBAN. PLACED SHORT FINGER SPLINT ON TOP OF NON-ADH BANDAGE AND COBAN AND SECURED SHORT FINGER SPLINT WITH ADDITIONAL COBAN. CHECKED PT'S PMSC'S BEFORE AND AFTER PROCEDURE, WNL.
[2019-07-08 11:05] VITALS: BP 160/95
--- NOTE | 2019-07-08 11:06 | NUR ---
Patient discharged with v/s stable. Written and verbal after care instructions given and explained. Patient alert, oriented and verbalized understanding of instructions. Ambulatory with steady gait. All questions addressed prior to discharge. ID band removed. Patient advised to follow up with PMD. Rx of MOTRIN 600 MG, KEFLEX 500 MG given. Patient educated on indication of medication including possible reaction and side effects. Opportunity to ask questions provided and answered.
== END 2019-07-08 11:06 | disposition home or self-care (01) ==
LOC: MED 08:13
DX: S61.011A Laceration without foreign body of right thumb without damage to nail, initial encounter (principal); W20.8XXA Other cause of strike by thrown, projected or falling object, initial encounter; Y93.89 Activity, other specified; Y92.89 Other specified places as the place of occurrence of the external cause; Y99.8 Other external cause status
CPT/HCPCS: 12002; 73140; 90471; 90715; 99283; J2001; Q0092

== ENCOUNTER 2019-07-17 16:37 | Emergency (ER) | payer OTHER ==
[~2019-07-17] VITALS: Ht 170.2 cm; Wt 78.0 kg
[2019-07-17 16:42] VITALS: BP 149/84
--- NOTE | 2019-07-17 16:51 | NUR ---
TO CHAIR C AMBULATORY
--- NOTE | 2019-07-17 16:52 | NUR ---
CAME IN FOR SUTURE REMOVAL, DONE LAST 7 DAYS, WOUND CLEAN AND DRY.
--- NOTE | 2019-07-17 16:57 | NUR ---
Dr. Valenzuela is evaluating the patient at bedside.
--- NOTE | 2019-07-17 17:00 | NUR ---
Leora thompson in ED - 07/17/19 at 1708 by MICHAEL Patient discharged with v/s stable. Written and verbal after care instructions given and explained. Patient verbalized understanding. Ambulatory with steady gait. All questions addressed prior to discharge. Advised to follow up with PMD.
--- NOTE | 2019-07-17 17:00 | NUR ---
ERMD REMOVED SUTURE WITH ASEPTIC TECHNIQUE.
[2019-07-17 17:06] VITALS: BP 149/84
--- NOTE | 2019-07-17 17:07 | NUR ---
Patient discharged with v/s stable. Written and verbal after care instructions given and explained. Patient verbalized understanding. Ambulatory with steady gait. All questions addressed prior to discharge. Advised to follow up with PMD.
== END 2019-07-17 17:07 | disposition home or self-care (01) ==
LOC: MED 16:37
DX: S61.011D Laceration without foreign body of right thumb without damage to nail, subsequent encounter (principal); Z48.02 Encounter for removal of sutures; Z87.448 Personal history of other diseases of urinary system; X58.XXXD Exposure to other specified factors, subsequent encounter
CPT/HCPCS: 99281

== ENCOUNTER 2021-07-23 14:51 | Inpatient (IN) | payer OTHER, SELFPAY ==
[~2021-07-23] VITALS: Ht 172.7 cm; Wt 76.2 kg
[2021-07-23 15:24] VITALS: BP 168/84
--- NOTE | 2021-07-23 15:54 | NUR ---
PT W/C ASSISTED BACK TO LOBBY FROM XRAY
--- NOTE | 2021-07-23 15:54 | NUR ---
PT W/C ASSISTED TO BED 10
--- NOTE | 2021-07-23 15:57 | NUR ---
DR. MOTNANEZ BEDSIDE EVALUATING PT
--- NOTE | 2021-07-23 16:03 | NUR ---
66 Y/O MALE REFERRED BY DIALYSIS CENTER DUE TO MISSED DIALYSIS APPT AND NOW NEEDING MEDICAL CLEARANCE. PER PATIENT [place] RESULTING IN HIM MISSING HIS DIAYLSIS. PT STATED "ROMULO HIS HIS DIAYLSIS OFFICE REQUIRES PATIENT TO RECIEVE MEDICAL CLEARNACE BEFORE HE IS ALLOWED TO RECEIVE DIALYSIS AGAIN." PT HAS DIALYSIS MWF. DENIES FEVER/CHILLS. DENIES N/V. DENIES CHEST PAIN/SOB. SKIN DRY AND INTACT. PT PLACED ON SHEAR OPERATOR BEDSIDE AND PUT INTO GOWN PMH: ESRD (AV SHUNT TO LEFT UPPER ARM) AGA
--- NOTE | 2021-07-23 16:14 | NUR ---
PROP AND SCENERY MAKER AT PATIENT BEDSIDE
[2021-07-23 16:48] LABS: BASOPHILS % (AUTO) 0.4 % (0.0-2.0); EOSINOPHILS # (AUTO) 0.1 K/uL (0-0.4); EOSINOPHILS % (AUTO) 2.7 % (0.0-4.0); HEMATOCRIT 29.9 % (36-52); HEMOGLOBIN 10.3 g/dL (12.0-18.0); LYMPHOCYTES % (AUTO) 19.4 % (20.5-51.1); MEAN CORPUSCULAR HEMOGLOBIN 32 pg (27-31); MEAN CORPUSCULAR HGB CONC 35 g/dL (33-37); MONOCYTES # (AUTO) 0.7 K/uL (0.8-1.0); NEUTROPHILS # (AUTO) 3.3 K/uL (1.8-7.7); NEUTROPHILS % (AUTO) 64.5 % (42.2-75.2); PLATELET COUNT (AUTO) 141 K/uL (140-450); RED BLOOD CELL COUNT(AUTO) 3.25 MIL/uL (4.20-6.10); RED CELL DISTRIBUTION WIDTH 13.7 % (11.6-13.7); WHITE BLOOD COUNT (AUTO) 5.2 K/uL (4.8-10.8)
--- NOTE | 2021-07-23 17:06 | NUR ---
PT PROVIDED WITH WARM BLANKET BEDSIDE
--- NOTE | 2021-07-23 17:07 | NUR ---
Patient appears to be resting comfortably in bed. Vital Signs within normal limits. Respirations even and unlabored.
[2021-07-23 17:21] LABS: ALBUMIN 3.8 g/dL (3.4-5.0); ANION GAP 26.8 (8-16); CARBON DIOXIDE 14.2 mmol/L (21-32); MAGNESIUM 2.5 mg/dL (1.8-2.4); PHOSPHORUS 7.3 mg/dL (2.5-4.9); TOTAL BILIRUBIN 0.4 mg/dL (0.0-1.0)
[2021-07-23 18:00] LABS: CREATININE 14.4 mg/dL (0.6-1.3)
--- NOTE | 2021-07-23 18:08 | NUR ---
Patient appears to be resting comfortably in bed. Vital Signs within normal limits. Respirations even and unlabored.
[2021-07-23] MEDS ORDERED: FAMO-368 PO (19:31)
[2021-07-23] MEDS ORDERED: AMLO10TA PO (19:31)
[2021-07-23] MEDS ORDERED: HYDR-1100 PO (19:31)
[2021-07-23] MEDS ORDERED: TAMS0.4C96 PO (19:31)
--- NOTE | 2021-07-23 19:31 | NUR ---
Pt report given to PANCHO ROBERT. Transfer of care at this time.
--- NOTE | 2021-07-23 19:31 | NUR ---
MED REC COMPLETED FOR PATIENT
--- NOTE | 2021-07-23 19:46 | NUR ---
REPORT RECEIVED FROM DELMIS LEE RN FOR CONTINUITY OF CARE
--- NOTE | 2021-07-23 20:43 | NUR ---
PT REQUEST FOR WATER. GIVEN.
[2021-07-23] MEDS ORDERED: SODIUM ZIRCONIUM CYCLOSILICATE 10 GM POWD.PACK PO SCH (21:45)
--- NOTE | 2021-07-24 02:17 | NUR ---
PT LAYING IN BED SLEEPING. NO SOB NOTED. CHEST RISE AND FALL PRESENT. VSS. WILL CONTINUE TO MONITOR.
--- NOTE | 2021-07-24 07:25 | NUR ---
GAVE REPORT TO DELMIS LANDON RN FOR CONTINUITY OF CARE
--- NOTE | 2021-07-24 07:30 | NUR ---
RECEIVED PT IN [facility] AOX4. DENIES PAIN OR DISCOMFORT. NSR ON MONITOR. IV INTACT AND PATENT SL. PENDING DIALYSIS. NAD. SAFETY MAINTAINED.
[2021-07-24 07:47] LABS: BASOPHILS % (AUTO) 0.4 % (0.0-2.0); EOSINOPHILS # (AUTO) 0.2 K/uL (0-0.4); EOSINOPHILS % (AUTO) 3.3 % (0.0-4.0); HEMATOCRIT 30.4 % (36-52); HEMOGLOBIN 10.5 g/dL (12.0-18.0); LYMPHOCYTES # (AUTO) 1.3 K/uL (2.0-11.5); MEAN CORPUSCULAR HEMOGLOBIN 32 pg (27-31); MEAN CORPUSCULAR HGB CONC 35 g/dL (33-37); MEAN CORPUSCULAR VOLUME 92.3 fL (80-94); MONOCYTES # (AUTO) 0.7 K/uL (0.8-1.0); MONOCYTES % (AUTO) 12.4 % (1.7-9.3); NEUTROPHILS # (AUTO) 3.2 K/uL (1.8-7.7); NEUTROPHILS % (AUTO) 59.9 % (42.2-75.2); PLATELET COUNT (AUTO) 134 K/uL (140-450); RED CELL DISTRIBUTION WIDTH 13.7 % (11.6-13.7); WHITE BLOOD COUNT (AUTO) 5.4 K/uL (4.8-10.8)
--- NOTE | 2021-07-24 07:47 | NUR ---
REPORT GIVEN TO GABRIELA DELEON FOR CONTINUATION OF CARE.
[2021-07-24 08:04] VITALS: BP 153/90
--- NOTE | 2021-07-24 08:04 | NUR ---
RECEIVED PT FROM ER, PT IS AOX4, ON RA, IV LINE NOTED ON THE RFA G. 22 ON SALINE LOCK, PT AMBULATES AND HAS A LEFT AV SHUNT FOR DIALYSIS ACCESS, V/S STABLE AND NO SIGN OF DISTRESS NOTED. WILL CONTINUE TO MONITOR PT.
[2021-07-24 08:55] LABS: ANION GAP 26.7 (8-16); CARBON DIOXIDE 11.8 mmol/L (21-32); POTASSIUM 5.5 mmol/L (3.5-5.1)
[2021-07-24 09:04] LABS: CREATININE 14.6 mg/dL (0.6-1.3)
--- NOTE | 2021-07-24 09:31 | NUR ---
PATIENT HAS BEEN SCREENED AND CATEGORIZED MODERATE NUTRITION RISK. PATIENT WILL BE SEEN WITHIN 3-5 DAYS OF ADMISSION. JANAE BELTRE RD
[2021-07-24] MEDS ORDERED: POTASSIUM CHLORIDE 10 MEQ TABER PO PRN (10:40)
[2021-07-24] MEDS ORDERED: MAG SULF 2000 MG/WATER PREMIX 50 ML IV PRN (10:40)
[2021-07-24] MEDS ORDERED: HYDROcodone/APAP 5/325 MG 1 TAB TAB PO PRN (10:45)
[2021-07-24] MEDS ORDERED: ACETAMINOPHEN 325 MG TAB PO PRN (10:45)
[2021-07-24] MEDS ORDERED: ZOLPIDEM 5 MG TAB PO PRN (10:45)
[2021-07-24] MEDS ORDERED: DOCUSATE SODIUM 100 MG GELCAP PO PRN (10:45)
[2021-07-24] MEDS ORDERED: LORazepam 2 MG/ML VIAL IM/IVP PRN (10:45)
[2021-07-24] MEDS ORDERED: ONDANSETRON 4 MG/2 ML VIAL IM/IVP PRN (10:45)
[2021-07-24] MEDS ORDERED: MORPHINE SULFATE 2 MG/ML SYR IVP PRN (10:45)
[2021-07-24] MEDS ORDERED: SODIUM ZIRCONIUM CYCLOSILICATE 10 GM POWD.PACK PO SCH (11:00)
--- NOTE | 2021-07-24 11:03 | NUR ---
MRA SWAB DONE TO PT NOW AND SAMPLE WAS SENT TO LAB.
[2021-07-24 12:00] VITALS: BP 159/89
[2021-07-24] MEDS: CALCIUM ACETATE 667 MG TAB PO SCH ×2 (12:00→18:13)
--- NOTE | 2021-07-24 12:00 | NUR ---
PT WAS GIVEN LOKELMA FOR K OF 5.5 AND CALCIUM ACETATE NOW
[2021-07-24 12:34] LABS: PROTHROMBIN TIME 10.4 secs (10.8-13.4)
[2021-07-24 12:35] LABS: CHOL/HDL RATIO 3.4 (1-4.5); THYROID STIMULATING HORMONE 2.05 uIU/mL (0.34-3.74)
[2021-07-24 13:37] LABS: APPEARANCE,URINE CLEAR (CLEAR); BILIRUBIN,URINE NEGATIVE (NEGATIVE); BLOOD, URINE NEGATIVE (NEGATIVE); COLOR,URINE YELLOW (YELLOW); LEUKOCYTE ESTERASE ,URINE NEGATIVE (NEGATIVE); NITRITE, URINE NEGATIVE (NEGATIVE); UGLUCOSE TRACE (NEGATIVE)
--- NOTE | 2021-07-24 13:45 | NUR ---
DIALYSIS WAS STARTED TO PT NOW.
[2021-07-24 14:05] LABS: CALCIUM OXALATE CRYSTALS,UR None Seen /HPF (None Seen); FINE GRANULAR CASTS,URINE None Seen /LPF (None Seen); HYALINE CASTS, URINE None Seen /LPF (None Seen); OTHER CRYSTALS,URINE None Seen /HPF (None Seen); RBC,URINE 0-5 /HPF (0-5); TRICHOMONAS,URINE None Seen /HPF (None Seen); TRIPLE PHOSPHATE CRYSTAL,UR None Seen /HPF (None Seen); URIC ACID CRYSTALS,URINE None Seen /HPF (None Seen); URINE AMORPHOUS URATE None Seen /HPF (None Seen); WBC,URINE 0-5 /HPF (0-5); YEAST,URINE None Seen /HPF (None Seen)
[2021-07-24 14:06] LABS: COARSE GRANULAR CASTS,URINE None Seen /LPF (None Seen); OTHER CASTS, URINE None Seen /LPF (None Seen); RED BLOOD CELL CASTS,URINE None Seen /LPF (None Seen); WAXY CASTS,URINE None Seen /LPF (None Seen)
[2021-07-24 15:22] LABS: BARBITURATE, URINE NEGATIVE ng/ml (NEG <=200)
[2021-07-24 15:23] LABS: BENZODIAZEPINE, URINE NEGATIVE ng/mL (NEG <=200); CANNABINOID, URINE NEGATIVE ng/mL (NEG <=50); COCAINE, URINE NEGATIVE ng/mL (NEG <=300); OPIATE, URINE NEGATIVE ng/mL (NEG <=2000); PHENCYCLIDINE SCREEN,URINE NEGATIVE ng/mL (NEG <=25)
[2021-07-24 16:00] VITALS: BP 153/96
--- NOTE | 2021-07-24 19:34 | NUR ---
ENDORSED PT TO OPERATOR AND TRUCK DRIVER NURSE FOR CONTINUITY OF CARE.
[2021-07-24 20:00] VITALS: BP 146/85
--- NOTE | 2021-07-24 20:30 | NUR ---
RECEIVED REPORT FROM RELIEVING RN AT BEDSIDE. PT IS AWAKE AND ALERT X4, SKIN INTACT, HE HAS A RIGHT F/A 20 GUAGE WHICH IS SALINE LOCKED. HE IS ON ROOM AIR WITH NO S/S OF PAIN OR DISTRESS NOTED. PT HAS LEFT AV SHUNT THRILL AND BRUIT FELT. V/S FOLLOWS: T 98.8 P 71 R 18 B/P 146/85 02 98% ON ROOM AIR. ALL UNIVERSAL FALLS PRECAUTIONS IN PLACE.
--- NOTE | 2021-07-24 21:30 | NUR ---
PT GIVEN ORDERED SQ HEPARIN PLATELETS 134 HG 10.5. EDUCATION REGARDING MEDICATION AND ITS PURPOSE PROVIDED AT BEDSIDE, PT ACKNOWLEDGED UNDERSTANDING. ALL ORDERED PRECAUTIONS IN PLACE.
[2021-07-25] VITALS: BP 137/86
--- NOTE | 2021-07-25 00:30 | NUR ---
PT RESTING IN BED NO C/O VOICED V/S FOLLOWS: T 98.3 P 78 R 18 B/P 137/68 02 95%. ALL UNIVERSAL FALLS PRECAUTIONS IN PLACE.
[2021-07-25 04:00] VITALS: BP 140/81
--- NOTE | 2021-07-25 07:40 | NUR ---
RECEIVED PT FROM NIGHT RN, PT IS AWAKE AND SEATED ON THE BED WITH SIDE RAILS UP AND CALL LIGHT WITHIN REACH,, ON RA, IV LINE NOTED ON THE RFA G. 22 ON SALINE LOCK, PT AMBULATES AND HAS A LEFT AV SHUNT FOR DIALYSIS ACCESS, AND NO SIGN OF DISTRESS NOTED. WILL CONTINUE TO MONITOR PT.
[2021-07-25 08:00] VITALS: BP 142/84
[2021-07-25 08:07] LABS: T4 (THYROXINE) 5.4 ug/dL (4.5-12.0)
[2021-07-25 08:15] LABS: ANION GAP 16.7 (8-16); CARBON DIOXIDE 29.8 mmol/L (21-32); POTASSIUM 3.5 mmol/L (3.5-5.1)
[2021-07-25 08:19] LABS: BASOPHILS % (AUTO) 0.3 % (0.0-2.0); EOSINOPHILS # (AUTO) 0.2 K/uL (0-0.4); EOSINOPHILS % (AUTO) 3.2 % (0.0-4.0); HEMOGLOBIN 10.4 g/dL (12.0-18.0); LYMPHOCYTES # (AUTO) 0.8 K/uL (2.0-11.5); LYMPHOCYTES % (AUTO) 16.1 % (20.5-51.1); MEAN CORPUSCULAR HEMOGLOBIN 32 pg (27-31); MEAN CORPUSCULAR HGB CONC 36 g/dL (33-37); MEAN CORPUSCULAR VOLUME 88.7 fL (80-94); MONOCYTES # (AUTO) 0.6 K/uL (0.8-1.0); MONOCYTES % (AUTO) 11.7 % (1.7-9.3); NEUTROPHILS # (AUTO) 3.3 K/uL (1.8-7.7); NEUTROPHILS % (AUTO) 68.7 % (42.2-75.2); PLATELET COUNT (AUTO) 144 K/uL (140-450); RED BLOOD CELL COUNT(AUTO) 3.27 MIL/uL (4.20-6.10); RED CELL DISTRIBUTION WIDTH 13.5 % (11.6-13.7); WHITE BLOOD COUNT (AUTO) 4.8 K/uL (4.8-10.8)
[2021-07-25 08:24] LABS: CREATININE 8.9 mg/dL (0.6-1.3)
[2021-07-25] MEDS: CALCIUM ACETATE 667 MG TAB PO SCH ×3 (08:30→17:23)
[2021-07-25] MEDS: TAMSULOSIN 0.4 MG CAP PO SCH (08:30)
--- NOTE | 2021-07-25 08:30 | NUR ---
PT WAS GIVEN THE SCHEDULED AM MEDICATIONS NOW, PARAMETER CHECKED.
[2021-07-25 08:34] LABS: PHOSPHORUS 6.7 mg/dL (2.5-4.9)
[2021-07-25] MEDS: hydrALAZINE 25 MG TAB PO SCH (09:00)
[2021-07-25] MEDS: amLODIPine 5 MG TAB PO SCH (09:00)
[2021-07-25] MEDS ORDERED: NON-FORMULARY ITEM (Hydralazine HCl (Hydralazine Hcl) 50 MG) PO SCH (09:00)
[2021-07-25] MEDS ORDERED: NON-FORMULARY ITEM (Famotidine (Famotidine) 20 MG) PO SCH (09:00)
--- NOTE | 2021-07-25 09:34 | NUR ---
DIALYSIS WAS TRANSFERRED NOW. Addendum: 07/25/21 at 1213 by Nicki Bello RN [facility] [facility]
--- NOTE | 2021-07-25 09:34 | NUR ---
DIALYSIS WAS STARTED NOW.
[2021-07-25 16:00] VITALS: BP 143/83
--- NOTE | 2021-07-25 19:25 | NUR ---
RECEIVED PATIENT REPORT FROM AM SHIFT NURSE FOR CONTINUITY OF CARE. PATIENT IN BED RESTING COMFORTABLY WITH HOB SLIGHTLY ELEVATED. ALL SAFETY MEASURES IN PLACE. CALL LIGHT WITHIN REACH. WILL CONTINUE WITH CURRENT PLAN OF CARE.
[2021-07-25 20:00] VITALS: BP 154/86
--- NOTE | 2021-07-25 20:52 | NUR ---
ADMINISTERED ALL DUE MEDICATIONS PER MD ORDERED. TOLERATED WELL. NO ASE NOTED. ALL SAFETY MEASURES IN PLACE. CALL LIGHT WITHIN REACH. WILL CONTINUE TO MONITOR.
--- NOTE | 2021-07-25 23:05 | NUR ---
CHECKED ON PATIENT. PATIENT ASLEEP WITH VISIBLE CHEST RISING AND FALLING. NOT IN DISTRESS. NO SOB NOTED. ALL SAFETY MEASURES IN PLACE. CALL LIGHT WITHIN REACH. WILL CONTINUE TO MONITOR.
[2021-07-26] VITALS: BP 147/82
--- NOTE | 2021-07-26 01:45 | NUR ---
ROUNDED ON PATIENT. SLEEPING WELL. BREATHING EVEN AND UNLABORED WITH NO SOB NOTED. CALL LIGHT WITHIN REACH. WILL CONTINUE TO MONITOR.
--- NOTE | 2021-07-26 03:24 | NUR ---
PATIENT ASLEEP WITH VISIBLE CHEST RISING AND FALLING. NO SOB NOTED. CALL LIGHT WITHIN REACH. WILL CONTINUE TO MONITOR.
[2021-07-26 04:00] VITALS: BP 130/68
--- NOTE | 2021-07-26 07:15 | NUR ---
Patient's Plan of Care was discussed and reviewed with SOFA COVER INSPECTOR: ELEN BAJWA
--- NOTE | 2021-07-26 07:20 | NUR ---
ENDORSED PATIENT REPORT TO AM SHIFT NURSE FOR CONTINUITY OF CARE. PATIENT IS STABLE.
--- NOTE | 2021-07-26 07:20 | NUR ---
OPENING NOTES: PATIENT IS RESTING IN BED QUIETLY. AAOX4 ABLE TO MAKE NEEDS KNOWN. ABLE TO AMBULATE INDEPENDENTLY WITH STEADY GAIT. BED IN LOW AND LOCK POSITION. CALL LIGHT WITHIN REACH. EXPLAINED POC AND PATIENT VERBALIZED UNDERSTANDING. ABLE TO UNDERSTAND AND SPEAK [facility]. NO ADDITIONAL DISTRESS NOTED. STABLE CONDITION AT THIS TIME. LIANNA AV FISTULA C/D/I, BRAYAN. WILL CONT TO MONITOR.
[2021-07-26 07:35] LABS: BASOPHILS % (AUTO) 0.4 % (0.0-2.0); EOSINOPHILS # (AUTO) 0.1 K/uL (0-0.4); EOSINOPHILS % (AUTO) 2.7 % (0.0-4.0); HEMATOCRIT 29.7 % (36-52); HEMOGLOBIN 10.6 g/dL (12.0-18.0); LYMPHOCYTES # (AUTO) 0.7 K/uL (2.0-11.5); MEAN CORPUSCULAR HEMOGLOBIN 32 pg (27-31); MEAN CORPUSCULAR HGB CONC 36 g/dL (33-37); MONOCYTES # (AUTO) 0.7 K/uL (0.8-1.0); MONOCYTES % (AUTO) 14.9 % (1.7-9.3); NEUTROPHILS # (AUTO) 3.1 K/uL (1.8-7.7); PLATELET COUNT (AUTO) 137 K/uL (140-450); RED BLOOD CELL COUNT(AUTO) 3.33 MIL/uL (4.20-6.10); RED CELL DISTRIBUTION WIDTH 13.4 % (11.6-13.7); WHITE BLOOD COUNT (AUTO) 4.6 K/uL (4.8-10.8)
[2021-07-26 08:00] VITALS: BP 158/80
[2021-07-26 08:21] LABS: ANION GAP 11.4 (8-16); CARBON DIOXIDE 28.4 mmol/L (21-32); POTASSIUM 3.8 mmol/L (3.5-5.1)
[2021-07-26 08:26] LABS: MAGNESIUM 2.1 mg/dL (1.8-2.4); PHOSPHORUS 5.3 mg/dL (2.5-4.9)
[2021-07-26] MEDS ORDERED: FAMOTIDINE 20 MG TAB PO SCH (09:00)
[2021-07-26 09:04] LABS: CREATININE 7.7 mg/dL (0.6-1.3)
[2021-07-26] MEDS: CALCIUM ACETATE 667 MG TAB PO SCH (10:28)
[2021-07-26] MEDS: amLODIPine 5 MG TAB PO SCH (10:28)
[2021-07-26] MEDS: hydrALAZINE 25 MG TAB PO SCH (10:29)
[2021-07-26] MEDS: TAMSULOSIN 0.4 MG CAP PO SCH (10:29)
--- NOTE | 2021-07-26 11:42 | NUR ---
DC PLANNING: CM SPOKE WITH THE PATIENTS DAUGHTER SIMON BY PHONE. THE PATIENT LIVES WITH HIS IN A MOBILE HOME AND IS INDEPENDENT IN ALL ACTIVITIES INCLUDING AMBULATION AND ADL'S. [facility] [facility] [place] , AND AT 2:50 PM AND HE DRIVES HIMSELF. NO DME OR H/O HOME HEALTH, HIS DAUGHTERS LIVE CLOSE TO HIM AND DROP BY EVERYDAY TO SEE THEIR PARENTS, NO DC NEEDS IDENTIFIED.
--- NOTE | 2021-07-26 12:30 | NUR ---
DC INSTRUCTIONS: DC INSTRUCTIONS EXPLAINED AND GIVEN TO PATIENT WITH HIS DAUGHTER COOPER ON THE PHONE TRANSLATING TO THE PATIENT. BOTH VERBALIZED UNDERSTANDING. ER PRECAUTION IS DISCUSSED WELL. IV REMOVED FROM THE RFA. IV CATH INTACT WHEN REMOVED. NO BLEEDING NOTED. COVER SITE WITH GAUZE AND SECURE WITH BAND-AID. NO ADDITIONAL DISTRESS NOTED. EDUCATE PATIENT TO F/U WITH PCP 3-5 DAYS FROM NOW AND TO MAKE SURE TO GO TO HD WITH [facility] IN AM. AWAITING FOR [facility] TO PICK PATIENT UP. WILL CONT TO MONITOR.
--- NOTE | 2021-07-26 13:00 | NUR ---
LEFT THE UNIT: PATIENT LEFT THE UNIT IN A STABLE CONDITION ACCOMPANIED BY PRIMARY NURSE. PATIENT WANTS TO WALK. COOPER (PATIENT'S DAUGHTER) PICKED UP PATIENT.
== END 2021-07-26 13:43 | disposition home or self-care (01) | DRG 640 ==
LOC: MED 14:51 → MTU 21:53
PROC: 5A1D70Z Performance of Urinary Filtration, Intermittent, Less than 6 Hours Per Day (ICD-10-PCS; principal; 2021-07-24)
PROC: 5A1D70Z Performance of Urinary Filtration, Intermittent, Less than 6 Hours Per Day (ICD-10-PCS; 2021-07-25)
DX: E87.5 Hyperkalemia (principal); N17.0 Acute kidney failure with tubular necrosis; N18.6 End stage renal disease; J90 Pleural effusion, not elsewhere classified; I12.0 Hypertensive chronic kidney disease with stage 5 chronic kidney disease or end stage renal disease; E87.0 Hyperosmolality and hypernatremia; E87.2 Acidosis; N40.0 Benign prostatic hyperplasia without lower urinary tract symptoms; K21.9 Gastro-esophageal reflux disease without esophagitis; D63.8 Anemia in other chronic diseases classified elsewhere; E83.39 Other disorders of phosphorus metabolism; E83.41 Hypermagnesemia; Z20.822 Contact with and (suspected) exposure to COVID-19
CPT/HCPCS: 36415; 71045; 80048; 80053; 80305; 81001; 82140; 82150; 83036; 83690; 83735; 83880; 84100; 84134; 84436; 84443; 84484; 85025; 85610; 85730; 87081; 93005; 99285; J1644

== ENCOUNTER 2023-12-18 11:02 | Inpatient (IN) | payer OTHER ==
[~2023-12-18] VITALS: Ht 170.2 cm; Wt 77.1 kg
[~2023-12-18 11:02] MED LIST changes: +AMLO10TA PO; +CARV6.252 PO; -CIPR500T4 PO; -DOXA2TAB1 PO; +FAMO-90 PO; -FERR325E14 PO; +NIFE30TE5 PO; +TAM75 PO; +TAMS0.4C96 PO
[2023-12-18 11:29] VITALS: BP 167/86; PULSE 74; RESP 16; TEMP 97.3; O2SAT 94
[2023-12-18 12:05] LABS: BASOPHILS % (AUTO) 0.9 % (0.0-2.0); EOSINOPHILS % (AUTO) 0.6 % (0.0-4.0); HEMOGLOBIN 7.8 g/dL (12.0-18.0); LYMPHOCYTES # (AUTO) 0.9 K/uL (2.0-11.5); LYMPHOCYTES % (AUTO) 16.6 % (20.5-51.1); MEAN CORPUSCULAR HEMOGLOBIN 32 pg (27-31); MEAN CORPUSCULAR HGB CONC 34 g/dL (33-37); MEAN CORPUSCULAR VOLUME 93.4 fL (80-94); MONOCYTES # (AUTO) 0.6 K/uL (0.8-1.0); MONOCYTES % (AUTO) 11.3 % (1.7-9.3); NEUTROPHILS # (AUTO) 3.9 K/uL (1.8-7.7); NEUTROPHILS % (AUTO) 70.6 % (42.2-75.2); PLATELET COUNT (AUTO) 149 K/uL (140-450); RED BLOOD CELL COUNT(AUTO) 2.46 MIL/uL (4.20-6.10); WHITE BLOOD COUNT (AUTO) 5.5 K/uL (4.8-10.8)
[2023-12-18 12:15] LABS: ANION GAP 12.3 (8-16); CALCIUM 9.9 mg/dL (8.5-10.1); CARBON DIOXIDE 32.9 mmol/L (21-32); POTASSIUM 5.2 mmol/L (3.5-5.1)
[2023-12-18 12:23] LABS: CREATININE 5.8 mg/dL (0.6-1.3)
[2023-12-18] MEDS ORDERED: ACETAMINOPHEN 325 MG TAB PO PRN (13:10)
[2023-12-18] MEDS ORDERED: ONDANSETRON 4 MG/2 ML VIAL IVP PRN (13:10)
[2023-12-18] MEDS ORDERED: hydrALAZINE 20 MG/ML VIAL IVP PRN (13:15)
[2023-12-18] MEDS: HYDROcodone/APAP 5/325 MG 1 TAB TAB PO PRN (15:02)
[2023-12-18] MEDS ORDERED: LISI5TAB18 PO (15:08)
[2023-12-18] MEDS ORDERED: HYDR-734 PO (15:09)
[2023-12-18] MEDS ORDERED: METO25TA14 PO (15:11)
[2023-12-18 15:17] VITALS: PULSE 73; RESP 17; O2SAT 99
[2023-12-18 18:10] VITALS: BP 151/78; RESP 17; TEMP 97.3; O2SAT 99
[2023-12-18 20:00] VITALS: BP 156/92; PULSE 73; RESP 18; TEMP 98.4; O2SAT 99
[2023-12-19] VITALS (15 sets, daily range): BP systolic 151–160; BP diastolic 78–94; PULSE 70–87; RESP 16–19; TEMP 97.5–98.8; O2SAT 96–100
[2023-12-19 05:32] LABS: BASOPHILS % (AUTO) 0.4 % (0.0-2.0); EOSINOPHILS % (AUTO) 0.8 % (0.0-4.0); HEMATOCRIT 23.2 % (36-52); LYMPHOCYTES % (AUTO) 18.5 % (20.5-51.1); MEAN CORPUSCULAR HEMOGLOBIN 32 pg (27-31); MEAN CORPUSCULAR HGB CONC 34 g/dL (33-37); MEAN CORPUSCULAR VOLUME 93.2 fL (80-94); MONOCYTES # (AUTO) 0.7 K/uL (0.8-1.0); MONOCYTES % (AUTO) 12.4 % (1.7-9.3); NEUTROPHILS # (AUTO) 3.8 K/uL (1.8-7.7); NEUTROPHILS % (AUTO) 67.9 % (42.2-75.2); PLATELET COUNT (AUTO) 129 K/uL (140-450); RED BLOOD CELL COUNT(AUTO) 2.49 MIL/uL (4.20-6.10); RED CELL DISTRIBUTION WIDTH 15.1 % (11.6-13.7); WHITE BLOOD COUNT (AUTO) 5.5 K/uL (4.8-10.8)
[2023-12-19 05:43] LABS: ANION GAP 13.1 (8-16); CALCIUM 9.4 mg/dL (8.5-10.1); CARBON DIOXIDE 30.1 mmol/L (21-32); POTASSIUM 5.2 mmol/L (3.5-5.1)
[2023-12-19 05:47] LABS: MAGNESIUM 2.2 mg/dL (1.8-2.4); PHOSPHORUS 4.1 mg/dL (2.5-4.9)
[2023-12-19 05:54] LABS: CREATININE 5.3 mg/dL (0.6-1.3)
[2023-12-19] MEDS: FAMOTIDINE 20 MG TAB PO SCH (16:28)
[2023-12-19] MEDS: carvediloL 6.25 MG TAB PO SCH (21:22)
[2023-12-19] MEDS: TAMSULOSIN 0.4 MG CAP PO SCH (21:22)
[2023-12-20] VITALS (9 sets, daily range): BP systolic 148–158; BP diastolic 58–86; PULSE 63–79; RESP 16–18; TEMP 97.6–98.6; O2SAT 96–99
[2023-12-20 05:53] LABS: BASOPHILS % (AUTO) 0.5 % (0.0-2.0); EOSINOPHILS % (AUTO) 0.9 % (0.0-4.0); HEMATOCRIT 22.8 % (36-52); HEMOGLOBIN 7.8 g/dL (12.0-18.0); LYMPHOCYTES # (AUTO) 0.9 K/uL (2.0-11.5); LYMPHOCYTES % (AUTO) 16.8 % (20.5-51.1); MEAN CORPUSCULAR HEMOGLOBIN 32 pg (27-31); MEAN CORPUSCULAR HGB CONC 34 g/dL (33-37); MEAN CORPUSCULAR VOLUME 92.8 fL (80-94); MONOCYTES # (AUTO) 0.5 K/uL (0.8-1.0); MONOCYTES % (AUTO) 9.7 % (1.7-9.3); NEUTROPHILS # (AUTO) 3.9 K/uL (1.8-7.7); NEUTROPHILS % (AUTO) 72.1 % (42.2-75.2); PLATELET COUNT (AUTO) 125 K/uL (140-450); RED BLOOD CELL COUNT(AUTO) 2.45 MIL/uL (4.20-6.10); RED CELL DISTRIBUTION WIDTH 14.8 % (11.6-13.7); WHITE BLOOD COUNT (AUTO) 5.4 K/uL (4.8-10.8)
[2023-12-20 05:59] LABS: ANION GAP 12.5 (8-16); CALCIUM 8.8 mg/dL (8.5-10.1); POTASSIUM 4.5 mmol/L (3.5-5.1)
[2023-12-20 06:06] LABS: CREATININE 4.7 mg/dL (0.6-1.3)
[2023-12-20] MEDS: NIFEdipine 90 MG TABER PO SCH (08:24)
[2023-12-20] MEDS: METOPROLOL SUCCINATE 50 MG TABER PO SCH (08:24)
[2023-12-20] MEDS: lisinopriL 5 MG TAB PO SCH (08:25)
[2023-12-21] VITALS (7 sets, daily range): BP systolic 120–148; BP diastolic 62–98; PULSE 60–76; RESP 18; TEMP 96.7–98.3; O2SAT 97–99
[2023-12-21 05:38] LABS: BASOPHILS % (AUTO) 0.3 % (0.0-2.0); EOSINOPHILS # (AUTO) 0.1 K/uL (0-0.4); EOSINOPHILS % (AUTO) 1.4 % (0.0-4.0); HEMATOCRIT 21.8 % (36-52); HEMOGLOBIN 7.5 g/dL (12.0-18.0); LYMPHOCYTES # (AUTO) 1.1 K/uL (2.0-11.5); LYMPHOCYTES % (AUTO) 22.6 % (20.5-51.1); MEAN CORPUSCULAR HEMOGLOBIN 32 pg (27-31); MEAN CORPUSCULAR HGB CONC 35 g/dL (33-37); MEAN CORPUSCULAR VOLUME 91.2 fL (80-94); MONOCYTES # (AUTO) 0.5 K/uL (0.8-1.0); MONOCYTES % (AUTO) 10.3 % (1.7-9.3); NEUTROPHILS # (AUTO) 3.2 K/uL (1.8-7.7); NEUTROPHILS % (AUTO) 65.4 % (42.2-75.2); PLATELET COUNT (AUTO) 118 K/uL (140-450); RED BLOOD CELL COUNT(AUTO) 2.39 MIL/uL (4.20-6.10); RED CELL DISTRIBUTION WIDTH 14.4 % (11.6-13.7); WHITE BLOOD COUNT (AUTO) 4.9 K/uL (4.8-10.8)
[2023-12-21 06:30] LABS: CALCIUM 8.6 mg/dL (8.5-10.1); CARBON DIOXIDE 25.6 mmol/L (21-32); POTASSIUM 4.6 mmol/L (3.5-5.1)
[2023-12-21 06:33] LABS: CREATININE 6.7 mg/dL (0.6-1.3)
== END 2023-12-21 14:35 | disposition home or self-care (01) | DRG 291 ==
LOC: MED 11:02 → MTU 13:11
PROVIDERS: ADMIT Internal Medicine; ATTEND Internal Medicine
PROC: 5A1D70Z Performance of Urinary Filtration, Intermittent, Less than 6 Hours Per Day (ICD-10-PCS; principal; 2023-12-18)
PROC: 5A1D70Z Performance of Urinary Filtration, Intermittent, Less than 6 Hours Per Day (ICD-10-PCS; 2023-12-19)
DX: I13.2 Hypertensive heart and chronic kidney disease with heart failure and with stage 5 chronic kidney disease, or end stage renal disease (principal); I50.43 Acute on chronic combined systolic (congestive) and diastolic (congestive) heart failure; J96.01 Acute respiratory failure with hypoxia; N18.6 End stage renal disease; E87.70 Fluid overload, unspecified; E11.22 Type 2 diabetes mellitus with diabetic chronic kidney disease; D63.1 Anemia in chronic kidney disease; N40.0 Benign prostatic hyperplasia without lower urinary tract symptoms; Z79.899 Other long term (current) drug therapy; Z99.2 Dependence on renal dialysis; Z87.891 Personal history of nicotine dependence
CPT/HCPCS: 36415; 71045; 80048; 82948; 83735; 83880; 84100; 84484; 85025; 87081; 90935; 94761; 99285; Q0092